=== PATIENT | male | born 1995 | race Asian ===

== ENCOUNTER 2018-08-22 14:05 | Emergency (ER) | payer OTHER ==
[~2018-08-22] VITALS: Ht 182.9 cm; Wt 107.0 kg
[2018-08-22 14:26] VITALS: BP 140/88; Ht 182.9 cm; Wt 107.0 kg
== END 2018-08-22 17:45 | disposition home or self-care (01) ==
LOC: ED 14:05
DX: S93.105A Unspecified dislocation of left toe(s), initial encounter (principal); X58.XXXA Exposure to other specified factors, initial encounter; Y93.89 Activity, other specified; Y92.89 Other specified places as the place of occurrence of the external cause; Y99.8 Other external cause status